=== PATIENT | female | born 1950 | race Caucasian/White ===

== ENCOUNTER 2024-07-14 05:49 | Outpatient (CLI) | payer MEDICARE, OTHER | END 2024-07-14 23:59 | disposition home or self-care (01) | LOC: MRI02 05:49 | PROVIDERS: ATTEND Family Medicine Sports Medicine | DX: S43.431A Superior glenoid labrum lesion of right shoulder, initial encounter (principal); S46.111A Strain of muscle, fascia and tendon of long head of biceps, right arm, initial encounter; M25.511 Pain in right shoulder; M89.9 Disorder of bone, unspecified; X58.XXXA Exposure to other specified factors, initial encounter; Y93.89 Activity, other specified; Y92.89 Other specified places as the place of occurrence of the external cause; Y99.8 Other external cause status; S43.491A Other sprain of right shoulder joint, initial encounter; M62.50 Muscle wasting and atrophy, not elsewhere classified, unspecified site; M65.811 Other synovitis and tenosynovitis, right shoulder | CPT/HCPCS: 73221 ==